=== PATIENT | male | born 1990 | race African-American/Black ===

== ENCOUNTER 2017-04-24 12:07 | Emergency (ER) | payer SELFPAY ==
[~2017-04-24] VITALS: Ht 165.1 cm; Wt 73.0 kg
[2017-04-24 12:11] VITALS: BP 136/86
== END 2017-04-24 16:04 | disposition home or self-care (01) ==
LOC: ER 14:30
DX: M54.2 Cervicalgia (principal); M54.5 Low back pain; V43.52XA Car driver injured in collision with other type car in traffic accident, initial encounter; Y93.89 Activity, other specified; Y92.89 Other specified places as the place of occurrence of the external cause; Y99.8 Other external cause status; Z90.49 Acquired absence of other specified parts of digestive tract
CPT/HCPCS: 99283